=== PATIENT | female | born 1995 | race Caucasian/White ===

== ENCOUNTER 2025-06-28 07:08 | Outpatient (CLI) | payer OTHER, SELFPAY ==
--- NOTE | 2025-06-28 07:15 | CRLHL7_ITS ---
For Patients: As a result of the Century Cures Act, medical imaging exams and procedure reports are released immediately into your electronic medical record. You may view this report before your referring provider. If you have questions, please contact your health care provider. OBSTETRICAL ULTRASOUND LIMITED INDICATION: Supervision of normal . CLINICAL HISTORY: LMP: 03/07/2025 TUCKER by LMP: 12/12/2025 Gestational Age: 16 weeks 1 day Surgery: No COMPARISON: None TECHNIQUE: Real-time nicole-scale transabdominal imaging of the fetus was performed. FINDINGS: Fetus: Single Cervix: Not visualized positioning: Breech Placenta technique: Transabdominal Placenta position: Anterior heart rate: 144 bpm BIOMETRY: BPD: 3.32 cm, 16 weeks 2 days, 55% HC: 12.1 cm, 16 weeks 0 days, 30% AC: 10.6 cm, 16 weeks 4 days, 65% FL: 1.9 cm, 15 weeks 4 days, 25% EFW: 144.37 grams; 0 lbs. 5 oz. age by this ultrasound: 16 weeks 1 day TUCKER by this ultrasound: 12/12/2025 Percentile by TUCKER: 37% IMPRESSION: 1. Single living intrauterine measures 16 weeks 1 day with sonographic due date of 12/12/2025. 2. Right fundal uterine fibroid measures 1.7 x 1.4 x 2.0 cm. HIRAM TAMAYO M.D. Diagnostic Radiologist [email or web address] Transcribed: 10:[address]/Dictated by: Hiram Tamayo MD @ 06/28/2025 10:12:00 AM (Electronically Signed)
== END 2025-06-28 07:09 | disposition home or self-care (01) ==
LOC: US 07:10
PROVIDERS: Visit Provider Advanced Practice Midwife
DX: O34.12 Maternal care for benign tumor of corpus uteri, second trimester (principal); D25.9 Leiomyoma of uterus, unspecified; Z3A.16 16 weeks gestation of pregnancy; Z34.82 Encounter for supervision of other normal pregnancy, second trimester; Z67.40 Type O blood, Rh positive
CPT/HCPCS: 76815; 83021; 86592; 86703; 86704; 86706; 86762; 86787; 86803; 86850; 86900; 86901; 87086; 87340

== ENCOUNTER 2025-06-28 08:18 | Outpatient (CLI) | payer OTHER, SELFPAY | END 2025-06-28 08:19 | disposition home or self-care (01) | PROVIDERS: Visit Provider Advanced Practice Midwife | DX: Z34.82 Encounter for supervision of other normal pregnancy, second trimester (principal); Z67.40 Type O blood, Rh positive | CPT/HCPCS: 83020; 83021; 85660; 86592; 86703; 86704; 86706; 86762; 86787; 86803; 86850; 86900; 86901; 87086; 87340 ==

== ENCOUNTER 2025-07-26 07:20 | Outpatient (CLI) | payer OTHER, SELFPAY ==
--- NOTE | 2025-07-26 07:15 | CRLHL7_ITS ---
For Patients: As a result of the Century Cures Act, medical imaging exams and procedure reports are released immediately into your electronic medical record. You may view this report before your referring provider. If you have questions, please contact your health care provider. OBSTETRICAL ULTRASOUND ??? ANATOMY SURVEY INDICATION: Basic anatomy survey. CLINICAL HISTORY: TUCKER by LMP: 12/12/2025 Gestational age: 20 weeks 1 day TECHNIQUE: Real-time nicole-scale transabdominal imaging of the fetus was performed. PREVIOUS ULTRASOUND: 06/28/2025 FINDINGS: position: Vertex Cervix: Visualized Technique: Transabdominal Length of closed cervix: 4.3 cm Placenta position: Anterior Technique: Transabdominal Placenta tip to internal os: 6.2 cm Umbilical cord: 3-vessel cord Placental insertion: Central Amniotic fluid: 4.5 cm SDP (greater than/equal to 2 to less than 8 cm) ANATOMY SURVEY: Observed Structures Cerebellum: Yes; 2 cm, 20 weeks 4 days Cisterna magna: Yes; 4.2 mm Nuchal fold: Yes; 3.8 mm Lateral ventricle: Yes; 4.8 mm CSP: Yes Midline falx: Yes Choroid plexus: Yes Spine: Yes Stomach: Yes Abdominal cord insert: Yes Urinary bladder: Yes Kidneys: Yes Diaphragm: Yes Nose/lips: Yes Orbital view: Yes Profile: Yes Upper extremities: Yes Lower extremities: Yes Hands: Yes Feet: Yes 4-chamber heart: Yes LVOT: Yes RVOT: Yes 3VV: Yes 3VTV: Yes BIOMETRY BPD: 4.5 cm, 19 weeks 3 days, 22% HC: 16.6 cm, 19 weeks 2 days, 11% AC: 15 cm, 20 weeks 1 day, 46% FL: 3.3 cm, 20 weeks 2 days, 50% FL/AC: 22.14% HC/AC ratio: 1.11 heart rate: 147 bpm age by this ultrasound: 20 weeks 0 days TUCKER by this ultrasound: 12/13/2025 Estimated weight: 335 grams (0 pounds 12 ounces) Percentile by TUCKER: 46% IMPRESSION: 1) Concordance of clinical and sonographic dating. 2) Normal anatomic survey. The renal pelvis is considered normal bilaterally. 3) Anterior uterine fibroid measures 2.2 x 1.6 x 2.3 cm. HIRAM TAMAYO M.D. Diagnostic Radiologist [email or web address] Transcribed: 9:[address]/Dictated by: Hiram Tamayo MD @ 07/26/2025 8:41:00 AM (Electronically Signed)
== END 2025-07-26 07:21 | disposition home or self-care (01) ==
LOC: US 07:20
PROVIDERS: Visit Provider Advanced Practice Midwife
DX: O34.12 Maternal care for benign tumor of corpus uteri, second trimester (principal); D25.9 Leiomyoma of uterus, unspecified; Z3A.20 20 weeks gestation of pregnancy
CPT/HCPCS: 76805